=== PATIENT | female | born 1985 | race Caucasian/White ===

== ENCOUNTER 2018-09-01 21:20 | Emergency (ER) | payer OTHER ==
[2018-09-01 21:33] VITALS: BP 141/76
--- NOTE | 2018-09-01 21:43 | UC ---
HPI BURN - HPI Summary HPI Summary: C/O left hand burn with boiling water this evening. Able to cool it down with cold water and put aloe on it. - History of Current Complaint Chief Complaint: UCSkin Stated Complaint: BURN LEFT HAND BOILING WATER Hx Obtained From: Patient Occurred: Hours Ago - 1 Onset Severity: Moderate Current Severity: Moderate Pain Intensity: 5 Location: LUE - Dorsum left hand Character: Scald Aggravating Factor(s): Other - touch Alleviating Factor(s): Cool Soaks Associated Signs & Symptoms: Positive: Negative Occupational Injury: No - Allergy/Home Medications Allergies/Adverse Reactions: Allergies Allergy/AdvReac Type Severity Reaction Status Date / Time Penicillins Allergy Hives Verified 09/01/18 21:32 NOVACAINE Allergy Facial Uncoded 09/01/18 21:32 Redness/Flushing Home Medications: Home Medications NK [No Home Medications Reported] 09/01/18 [History Confirmed 09/01/18] PMH/Surg Hx/FS Hx/Imm Hx Psychological History: Anxiety - Surgical History Surgical History: None - Family History Known Family History: Positive: Cardiac Disease, Hypertension, Diabetes - Social History Occupation: Employed Full-time Lives: With Family Alcohol Use: Occasionally Substance Use Type: None Smoking Status (MU): Never Smoked Tobacco Review of Systems All Other Systems Reviewed And Are Negative: Yes Skin: Positive: Other - burn Is Patient Immunocompromised?: No Physical Exam Triage Information Reviewed: Yes Appearance: Well-Appearing, Well-Nourished, Pain Distress - mild Vital Signs: Initial Vital Signs Temp 98.2 F 09/01/18 21:29 Pulse 74 09/01/18 21:29 Resp 16 09/01/18 21:29 BP 141/76 09/01/18 21:29 Pulse Ox 98 09/01/18 21:29 Vital Signs Reviewed: Yes Eyes: Positive: Conjunctiva Clear Neck exam: Normal Respiratory: Positive: Lungs clear Cardiovascular Exam: Normal Musculoskeletal Exam: Normal Neurological Exam: Normal Psychological Exam: Normal Skin: Positive: Other - burn left hand Images Hands: 1 - 1 st degree burn Burn Calculation - Head / Neck 9% Head / Neck % 1st De Head / Neck % 2nd De Head / Neck % 3rd De - Trunk / Ant. 18% Trunk / Ant. % 1st De Trunk / Ant. % 2nd De Trunk / Ant. % 3rd De - Left Arm 9% Left Arm 1st De - Total 1st Deg Total: 1 2nd Deg Total: 0 3rd Deg Total: 0 Total % BSA: 1 - [place] Formula for Fluid Resuscitation Weight: 220 lb Total % BSA 2nd & 3rd Degree: 0 24 -Hour Fluid Replacement: 0.0 Course/Dx Burn - Differential Dx - Burn Differential Diagnoses: Chemical Burn, Direct Contact Thermal Burn, Electrical Burn - Diagnoses Provider Diagnosis: First degree burn of left hand Discharge - Sign-Out/Discharge Documenting (check all that apply): Patient Departure All imaging exams completed and their final reports reviewed: No Studies - Discharge Plan Condition: Stable Disposition: HOME Patient Education Materials: Superficial Burn (ED) Referrals: Mali Carrillo DO [Primary Care Provider] - Additional Instructions: Continue cold therapy for pain relief and aloe vera for healing. - Billing Disposition and Condition Condition: STABLE Disposition: Home
== END 2018-09-01 21:54 | disposition home or self-care (01) ==
LOC: UCCORT 21:20
DX: T23.162A Burn of first degree of back of left hand, initial encounter (principal); T31.0 Burns involving less than 10% of body surface; Z88.0 Allergy status to penicillin; Z88.8 Allergy status to other drugs, medicaments and biological substances; X12.XXXA Contact with other hot fluids, initial encounter; Y92.9 Unspecified place or not applicable
CPT/HCPCS: 99211; G0463

== ENCOUNTER 2019-07-22 18:09 | Emergency (ER) | payer OTHER ==
[2019-07-22 18:33] VITALS: BP 136/86
[2019-07-22] MEDS ORDERED: Tetan/Diph/Pertus SYR(Tdap)* 0.5 ML SYR(BOOSTRIX) use SYR contains LATEX IM ONE (19:36)
--- NOTE | 2019-07-22 19:36 | UC ---
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 - History Of Current Complaint Chief Complaint: UCLaceration Stated Complaint: LT INDEX FINGER LAC Time Seen by Provider: 07/22/19 19:26 Hx Obtained From: Patient Hx Last Menstrual Period: 07/12/19 Laceration Location: Finger - left hand second digit Mechanism Of Injury: Sharp Trauma Onset/Duration: Sudden Onset Pain Intensity: 7 Aggravating Factors: Movement Related History: Dominant Hand Right - Allergies/Home Medications Allergies/Adverse Reactions: Allergies Allergy/AdvReac Type Severity Reaction Status Date / Time Penicillins Allergy Hives Verified 07/22/19 18:34 NOVACAINE Allergy Facial Uncoded 07/22/19 18:34 Redness/Flushing Home Medications: Home Medications Cbd Oil 600 ml DAILY 07/22/19 [History Confirmed 07/22/19] Escitalopram * [Lexapro 10 mg (NF)] 10 mg PO BEDTIME 07/22/19 [History Confirmed 07/22/19] PMH/Surg Hx/FS Hx/Imm Hx Previously Healthy: Yes Psychological History: Anxiety - Surgical History Surgical History: None - Family History Known Family History: Positive: Cardiac Disease, Hypertension, Diabetes - Social History Occupation: Employed Full-time Lives: With Family Alcohol Use: Occasionally Substance Use Type: None Smoking Status (MU): Never Smoked Tobacco - Immunization History Most Recent Tetanus Shot: over 5 years ago Review of Systems All Other Systems Reviewed And Are Negative: Yes Constitutional: Positive: Negative Skin: Positive: Negative Eyes: Positive: Negative ENT: Positive: Negative Respiratory: Positive: Negative Cardiovascular: Positive: Negative Gastrointestinal: Positive: Negative Genitourinary: Positive: Negative Psychological: Positive: Negative Is Patient Immunocompromised?: No Physical Exam Triage Information Reviewed: Yes Appearance: Well-Appearing, Pain Distress - mild Vital Signs: Initial Vital Signs Temp 98.4 F 07/22/19 18:28 Pulse 71 07/22/19 18:28 Resp 15 07/22/19 18:28 BP 136/86 07/22/19 18:28 Pulse Ox 99 07/22/19 18:28 ENT: Positive: Normal ENT inspection Respiratory: Positive: Lungs clear, Normal breath sounds Cardiovascular: Positive: RRR, No Murmur Musculoskeletal Exam: Normal Neurological Exam: Normal Skin Exam: Other - laceration of distal second digit, very near to the tip of the finger. Laceration Repair - Laceration Repair 1 Description: Linear Laceration Size After Repair: Length (cm) - 1 Modified For Repair: No Closure Material: Skin Adhesive, SteriStrips Laceration Course/Dx - Course/Dx Course Of Treatment: Distal finger tip laceration --discussed that will heal best if kept immobilized and dry. Glue and sterstrips applied with bulky finger dressing. - Differential Dx - Laceration/Wound Differental Diagnoses: Laceration - Diagnosis Provider Diagnosis: Laceration of left index finger Discharge ED - Sign-Out/Discharge Documenting (check all that apply): Patient Departure All imaging exams completed and their final reports reviewed: No Studies - Discharge Plan Condition: Stable Disposition: HOME Patient Education Materials: Skin Adhesive Care (ED), Diphtheria/Acellular Pertussis/Tetanus Booster Vaccine (By injection) Referrals: Mali Carrillo DO [Primary Care Provider] - Additional Instructions: Keep the dressing dry and intact for as long as possible--2 to 3 days if possible. Once the bulky dressing is removed, keep the finger shahid splinting to prevent keyboard impact. remove the steristrips as they loosen, and keep the wound dry and clean. You have received a [id number] booster today. - Billing Disposition and Condition Condition: STABLE Disposition: Home
== END 2019-07-22 20:11 | disposition home or self-care (01) ==
LOC: UCCORT 18:09
DX: S61.211A Laceration without foreign body of left index finger without damage to nail, initial encounter (principal); W26.0XXA Contact with knife, initial encounter; Y93.89 Activity, other specified; Y92.9 Unspecified place or not applicable; Z23 Encounter for immunization; F41.9 Anxiety disorder, unspecified; Z79.899 Other long term (current) drug therapy; Z88.0 Allergy status to penicillin; Z88.7 Allergy status to serum and vaccine
CPT/HCPCS: 12001; 90471; 90715; 99211; 99213; G0463